=== PATIENT | male | born 1960 | race Hispanic/Latino ===

== ENCOUNTER 2017-10-15 23:51 | Emergency (ER) | payer BC ==
[~2017-10-15] VITALS: Ht 177.8 cm; Wt 89.8 kg
[2017-10-16 00:45] LABS: BASOPHILS % 0.9 % (0.0-1.0); EOSINOPHILS # (AUTO) 0.1 (0.0-0.4); EOSINOPHILS % 2.8 % (0.0-6.0); HEMOGLOBIN 14.2 g/dL (14.0-18.0); LYMPHOCYTES # (AUTO) 1.1 (1.0-3.2); LYMPHOCYTES % 24.9 % (18.0-39.1); MEAN CORPUSCULAR HEMOGLOBIN 31.1 pg (28-32); MEAN CORPUSCULAR HGB CONC 35.5 g/dL (31-35); MEAN CORPUSCULAR VOLUME 87.7 fL (81-99); MONOCYTES # (AUTO) 0.8 (0.2-0.8); MONOCYTES % 16.6 % (4.4-11.3); NEUTROPHILS # (AUTO) 2.5 (2.1-6.9); NEUTROPHILS % 54.6 % (38.7-80.0); PLATELET COUNT 249 x10e3/uL (140-360); RED BLOOD COUNT 4.56 x10e6/uL (4.3-5.7); RED CELL DISTRIBUTION WIDTH 12.3 % (11.7-14.4)
[2017-10-16 00:46] LABS: KETONES,URINE 3+ (NEGATIVE); LEUKOCYTE ESTERASE ,URINE 1+ (NEGATIVE); URINE UROBILINOGEN 12 mg/dL (0.2 - 1)
[2017-10-16 00:47] LABS: BILIRUBIN,URINE 2+ (NEGATIVE); COLOR,URINE AMBER (YELLOW); NITRITE,URINE POSITIVE (NEGATIVE); PROTEIN,URINE DIPSTICK TRACE (NEGATIVE)
[2017-10-16 00:48] LABS: CLARITY,URINE SL CLOUDY (CLEAR)
[2017-10-16 00:54] LABS: BACTERIA,URINE MODERATE /HPF; EPITHELIAL CELLS,URINE RARE /LPF; MUCUS,URINE MANY (RARE); RBC,URINE 0-5 /HPF (0-5)
[2017-10-16 01:04] LABS: AMYLASE 44 U/L (25-125); LIPASE 73 U/L (8-78)
[2017-10-16 01:08] LABS: ALANINE AMINOTRANSFERASE 140 IU/L (0-55); ALBUMIN 3.2 g/dL (3.5-5.0); ALKALINE PHOSPHATASE 56 IU/L (40-150); ANION GAP 16.6 mmol/L (8-16); BLOOD UREA NITROGEN 19 mg/dL (7-26); BUN/CREATININE RATIO 23 (6-25); CALCIUM 8.8 mg/dL (8.4-10.2); CARBON DIOXIDE 20 mmol/L (22-29); CHLORIDE 106 mmol/L (98-107); CREATININE, SERUM 0.82 mg/dL (0.72-1.25); EST GLOMERULAR FILTRATION RATE > 60 ML/MIN (60-); GLUCOSE 135 mg/dL (74-118); POTASSIUM 3.6 mmol/L (3.5-5.1); SODIUM 139 mmol/L (136-145)
[2017-10-16] MEDS ORDERED: PANTOPRAZOLE 40 MG 10ML VIAL IV STA (02:30)
[2017-10-16] MEDS ORDERED: PIPER-TAZ 3.375 GM 50 ML IV STA (02:30)
[2017-10-16] MEDS ORDERED: SODIUM CHLORIDE 0.9% 1000ML 1,000 ML IV STA (02:30)
[2017-10-16 02:42] LABS: INR 1.09; PROTHROMBIN TIME 13.3 seconds (11.9-14.5)
[2017-10-16 02:43] LABS: PARTIAL THROMBOPLASTIN TIME 26.1 seconds (23.8-35.5)
[2017-10-16 02:56] LABS: CREATINE KINASE MB 0.8 ng/mL (0-5.0)
--- NOTE | 2017-10-16 03:10 | Diagnostic Imaging Report ---
EXAM: CT ABDOMEN AND PELVIS with IV CONTRAST DATE: 10/16/2017 1:19 AM Time stamp on Exam: 0236 hours INDICATION: Mid abdominal pain COMPARISON: CT of the abdomen and pelvis November 24, 2010 TECHNIQUE: The abdomen and pelvis were scanned using a multidetector helical scanner. Coronal and sagittal reformations were obtained. Routine protocol performed. IV Contrast: 100 cc Isovue-370 Oral Contrast: Water CTDIvol has been reviewed. It is below the limits set by the Radiation Protocol Committee (RPC). FINDINGS: LOWER THORAX: No consolidations LIVER: No masses BILIARY: The gallbladder is unremarkable. No ductal dilation. SPLEEN: No masses PANCREAS: No masses ADRENALS: No nodules KIDNEYS: Symmetric perfusion. No enhancing masses. No hydronephrosis. GI TRACT: No distention, wall thickening or evidence of obstruction. Scattered colonic diverticula. Normal appendix. VESSELS: Unremarkable PERITONEUM/RETROPERITONEUM: No free air or fluid LYMPH NODES: Left inguinal and pelvic sidewall clips. Right inguinal mass measuring 3.5 x 4 cm. Fat stranding left inguinal region. Enlarged right common femoral lymph node measuring 1.2 cm in short diameter. REPRODUCTIVE ORGANS: Unremarkable BLADDER: Unremarkable SOFT TISSUES: Unremarkable BONES: No suspicious bone lesions. IMPRESSION: Right inguinal lymphadenopathy consistent with metastatic disease measuring up to [address] findings to explain patient's mid abdominal pain. Signed by: Dr. Brielle Burris M.D. on 10/16/2017 3:07 AM
--- NOTE | 2017-10-16 03:11 | Diagnostic Imaging Report ---
EXAM: CHEST SINGLE (PORTABLE), AP 1 view INDICATION: Mid abdominal pain COMPARISON: None FINDINGS: LINES/TUBES: None LUNGS: No consolidations or edema. PLEURA: No effusions or pneumothorax. HEART AND MEDIASTINUM: Normal size and contour. BONES AND SOFT TISSUES: No acute findings. Metallic fragment projects over the right axilla. IMPRESSION: No acute thoracic abnormality. Signed by: Dr. Brielle Burris M.D. on 10/16/2017 3:07 AM
[2017-10-16] MEDS ORDERED: SODIUM CHLORIDE 0.9% 50ML 50 ML ONE (03:48)
[2017-10-16] MEDS ORDERED: IOPAMIDOL 370 MG/ML 200 ML INFUS..BTL INJ ONE (03:49)
== END 2017-10-16 04:34 | disposition home or self-care (01) ==
LOC: ER 23:51
DX: R10.11 Right upper quadrant pain (principal); R10.13 Epigastric pain; N30.90 Cystitis, unspecified without hematuria; B17.9 Acute viral hepatitis, unspecified
CPT/HCPCS: 36415; 71045; 74177; 80053; 81001; 82150; 82550; 82553; 83690; 84484; 85025; 85610; 85730; 96360; 96365; 96374; 99284; J2543; J7030; Q9967

== ENCOUNTER 2019-01-17 08:33 | Emergency (ER) | payer BC ==
[~2019-01-17] VITALS: Ht 177.8 cm; Wt 85.7 kg
--- OUTSIDE RECORDS SUMMARY | 2019-01-17 08:36 | XMS REPORT ---
[facility] Address Unknown Phone Unavailable Care Team Providers Care [employer] Name Role Phone Misti YOUNGBLOOD Unavailable Unavailable Problems This patient has no known problems. Allergies, Adverse Reactions, Alerts This patient has no known allergies or adverse reactions. Medications This patient has no known medications. Results Test Description Test Time Test Comments Text Results Atomic Results Result Comments CHEST SINGLE (PORTABLE) [place] [address] Patient Name: BRANDI ARANA MR #: [id number] : 1960 Age/Sex: 57/M Req #: [id number] Adm Physician: Ordered by: LILIAN YOUNGBLOOD MD Report #: [id number] Location: ER Room/Bed: Procedure: [id number] DX/CHEST SINGLE (PORTABLE) Exam Date: Exam Time: REPORT STATUS: Signed EXAM: CHEST SINGLE (PORTABLE), AP 1 view INDICATION: Mid abdominal pain COMPARISON: None FINDINGS: LINES/TUBES: None LUNGS: No consolidations or edema. PLEURA: No effusions or pneumothorax. HEART AND MEDIASTINUM: Normal size and contour. BONES AND SOFT TISSUES: No acute findings. Metallic fragment projects over the right axilla. IMPRESSION: No acute thoracic abnormality. Signed by: Dr. Fabiana Davidson M.D. on 10/16/2017 3:07 AM Dictated By: FABIANA DAVIDSON MD 6 Transcribed By: ANUPAMA on 10/16/17306 COPY TO: LILIAN YOUNGBLOOD MD CT ABDOMEN/PELVIS W [place] [address] Patient Name: BRANDI ARANA MR #: [id number] : 1960 Age/Sex: 57/M Req #: [id number] Adm Physician: Ordered by: LILIAN YOUNGBLOOD MD Report #: [id number] Location: ER Room/Bed: Procedure: [id number] CT/CT ABDOMEN/PELVIS W Exam Date: Exam Time: REPORT STATUS: Signed EXAM: CT ABDOMEN AND PELVIS with IV CONTRAST DATE: 10/16/2017 1:19 AM Time stamp on Exam: 0236 hours INDICATION: Mid abdominal pain COMPARISON: CT of the abdomen and pelvis November 24, 2010 TECHNIQUE: The abdomen and pelvis were scanned using a multidetector helical scanner. Coronal and sagittal reformations were obtained. Routine protocol performed. IV Contrast: 100 cc Isovue-370 Oral Contrast: Water CTDIvol has been reviewed. It is below the limits set by the Radiation Protocol Committee (RPC). FINDINGS: LOWER THORAX: No consolidations LIVER: No masses BILIARY: The gallbladder is unremarkable. No ductal dilation. SPLEEN: No masses PANCREAS: No masses ADRENALS: No nodules KIDNEYS: Symmetric perfusion. No enhancing masses. No hydronephrosis. GI TRACT: No distention, wall thickening or evidence of obstruction. Scattered colonic diverticula. Normal appendix. VESSELS: Unremarkable PERITONEUM/RETROPERITONEUM: No free air or fluid LYMPH NODES: Left inguinal and pelvic sidewall clips. Right inguinal mass measuring 3.5 x 4 cm. Fat stranding left inguinal region. Enlarged right common femoral lymph node measuring 1.2 cm in short diameter. REPRODUCTIVE ORGANS: Unremarkable BLADDER: Unremarkable SOFT TISSUES: Unremarkable BONES: No suspicious bone lesions. IMPRESSION: Right inguinal lymphadenopathy consistent with metastatic disease measuring up to [address] findings to explain patient's mid abdominal pain. Signed by: Dr. Fabiana Davidson M.D. on 10/16/2017 3:07 AM Dictated By: FABIANA DAVIDSON MD 6 Transcribed By: ANUPAMA on 10/16/17306 COPY TO: LILIAN YOUNGBLOOD MD
[2019-01-17] MEDS ORDERED: SODIUM CHLORIDE 0.9% 1000ML 1,000 ML IV STA (08:45)
--- NOTE | 2019-01-17 09:18 | Diagnostic Imaging Report ---
Examination: Single AP view of the chest. 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 No focal airspace consolidation, pleural effusion, or pneumothorax. Cardiomediastinal contour and pulmonary vasculature are within normal limits for portable, AP technique and degree of inspiratory effort. No acute osseous abnormality. IMPRESSION: Low lung volumes without acute cardiopulmonary abnormality. Signed by: Dr. Rene Birmingham M.D. on 01/17/2019 9:15 AM
[2019-01-17] MEDS ORDERED: FOSPHENYTOIN 50 MG/ML VIAL IV STA (09:28)
--- NOTE | 2019-01-17 09:29 | NUR ---
DR YOUNGBLOOD AT BEDSIDE FOR RE-EVAL AND DISCUSSING THE CURRENT PLAN OF CARE, PATIENT TO BE TRANSFERRED FOR HIGHER LEVEL OF CARE. PATIENT AND FAMILY VERBALIZED UNDERSTANDING.
[2019-01-17] MEDS ORDERED: DEXAMETHASONE SOD PHOS 10 MG/1 ML VIAL IV ONE (09:30)
--- NOTE | 2019-01-17 09:42 | Diagnostic Imaging Report ---
Examination: CT BRAIN WITHOUT CONTRAST History:Tremors from today. Bilateral lower extremity fasciculations. History of brain surgery on the right. Future gamma knife on the left tumor. Comparison studies:None Technique: Axial images were obtained from the skull base to the vertex. Coronal and sagittal images reconstructed from the axial data. Dose modulation, iterative reconstruction, and/or weight based adjustment of the mA/kV was utilized to reduce the radiation dose to as low as reasonably achievable. Intravenous contrast: None Findings: Scalp: No abnormalities. Bones: Prior right parietal craniectomy with underlying encephalomalacia of the right superior parietal lobule. No fractures, blastic or lytic lesions. Brain sulci: Appropriate for age. Ventricles: Normal in size and configuration. No hydrocephalus. Extra-axial space: No abnormalities. Parenchyma: There is an ill-defined hyperdense lesion (melanoma metastasis) with associated 3.4 x 2.8 x 2.3 cm (superoinferior x anteroposterior x transverse dimensions) hemorrhage in the left superior parietal lobule. The combination of the mass and hemorrhage results in regional vasogenic edema and mild mass effect on the atrium of the left lateral ventricle. No midline shift or herniation. No acute or chronic cortical based vascular insults. Sellar/suprasellar region: No abnormalities. Craniocervical junction: Patent foramen magnum. No Chiari one malformation. Incidental findings: None. Impression: 1. Ill-defined hyperdense melanoma metastasis with associated 3.4 x 2.8 x 2.3 cm hemorrhage in the left superior parietal lobule. The combination of both findings result in regional mass effect and mild mass effect on the left lateral ventricle. No midline shift or herniation. 2. Prior right parietal craniectomy with underlying encephalomalacia of the right superior parietal lobule. Dr. Cony Martinez discussed acute findings and recommendations with Dr. Morgan on 01/17/2019 at 0924 hours. Signed by: Dr. Cony Martinez M.D. on 01/17/2019 9:39 AM
--- NOTE | 2019-01-17 09:43 | NUR ---
INITIATED TRANSFER TO [facility], SPOKE WITH SANNA.
[2019-01-17] MEDS ORDERED: MIDAZOLAM HCL 2 MG/2 ML VIAL IV STA (09:52)
[2019-01-17] MEDS ORDERED: DEXAMETHASONE SOD PHOS 10 MG/1 ML VIAL IV NR (10:00)
[2019-01-17] MEDS ORDERED: LORAZEPAM INJ 2 MG/ML VIAL IV NR (10:00)
[2019-01-17 10:01] LABS: BASOPHILS # (AUTO) 0.1 (0.0-0.1); BASOPHILS % 1.4 % (0.0-1.0); EOSINOPHILS # (AUTO) 0.1 (0.0-0.4); EOSINOPHILS % 0.9 % (0.0-6.0); HEMATOCRIT 38.4 % (38.2-49.6); HEMOGLOBIN 12.8 g/dL (14.0-18.0); LYMPHOCYTES # (AUTO) 1.6 (1.0-3.2); LYMPHOCYTES % 27.9 % (18.0-39.1); MEAN CORPUSCULAR HEMOGLOBIN 31.4 pg (28-32); MEAN CORPUSCULAR HGB CONC 33.3 g/dL (31-35); MEAN CORPUSCULAR VOLUME 94.3 fL (81-99); MONOCYTES # (AUTO) 0.7 (0.2-0.8); MONOCYTES % 12.3 % (4.4-11.3); NEUTROPHILS # (AUTO) 3.3 (2.1-6.9); NEUTROPHILS % 56.5 % (38.7-80.0); PLATELET COUNT 309 x10e3/uL (140-360); RED BLOOD COUNT 4.07 x10e6/uL (4.3-5.7); RED CELL DISTRIBUTION WIDTH 13.1 % (11.7-14.4)
[2019-01-17 10:04] LABS: BILIRUBIN,URINE NEGATIVE (NEGATIVE); CLARITY,URINE SL CLOUDY (CLEAR); COLOR,URINE YELLOW (YELLOW); KETONES,URINE NEGATIVE (NEGATIVE); LEUKOCYTE ESTERASE ,URINE NEGATIVE (NEGATIVE); NITRITE,URINE NEGATIVE (NEGATIVE); PROTEIN,URINE DIPSTICK NEGATIVE (NEGATIVE); URINE UROBILINOGEN 0.2 mg/dL (0.2 - 1)
--- NOTE | 2019-01-17 10:06 | NUR ---
PT STOPPED SHAKING POST ADMIN OF VERSED; PT STATES HE'S ABLE TO RELAX MORE NOW
[2019-01-17 10:08] LABS: INR 0.87; PROTHROMBIN TIME 12.3 seconds (11.9-14.5)
[2019-01-17 10:09] LABS: PARTIAL THROMBOPLASTIN TIME 27.5 seconds (23.8-35.5)
[2019-01-17 10:13] LABS: EPITHELIAL CELLS,URINE RARE /LPF
[2019-01-17] MEDS ORDERED: DIAZEPAM 5 MG TAB PO ONE (10:15)
[2019-01-17] MEDS ORDERED: FOSPHENYTOIN 1,000 MG in SODIUM CHLORIDE 0.9% 50ML 50 ML IV ONE (10:15)
[2019-01-17 10:16] LABS: ALANINE AMINOTRANSFERASE 17 IU/L (0-55); ALBUMIN 3.8 g/dL (3.5-5.0); ALBUMIN/GLOBULIN RATIO 1.3 (0.8-2.0); ALKALINE PHOSPHATASE 74 IU/L (40-150); ANION GAP 11.1 mmol/L (8-16); BLOOD UREA NITROGEN 13 mg/dL (7-26); BUN/CREATININE RATIO 17 (6-25); CALCIUM 9.5 mg/dL (8.4-10.2); CARBON DIOXIDE 25 mmol/L (22-29); CHLORIDE 106 mmol/L (98-107); CREATININE, SERUM 0.77 mg/dL (0.72-1.25); EST GLOMERULAR FILTRATION RATE > 60 ML/MIN (60-); GLUCOSE 108 mg/dL (74-118); MAGNESIUM 2.1 MG/DL (1.3-2.1); POTASSIUM 4.1 mmol/L (3.5-5.1); SODIUM 138 mmol/L (136-145)
--- NOTE | 2019-01-17 10:18 | NUR ---
INITIATED TRANSFER TO [facility] [place], SPOKE WITH
[2019-01-17 10:36] LABS: THYROID STIMULATING HORMONE 1.427 uIU/mL (0.350-4.940)
--- NOTE | 2019-01-17 11:00 | NUR ---
[facility] ACCEPTED THE TRANSFER, SPOKE WITH LEANDER, STATES THEY ARE WAITING ON A BED AT THIS TIME AND WILL NOTIFY WHEN BED IS AVIALABLE.
--- NOTE | 2019-01-17 11:05 | NUR ---
SPOKE WITH JORDAN VELAZQUEZ [facility], STATES IN APPROX 15 MIN NEURO ICU BED WILL BE AVIALABLE. NOTIFIED DR YOUNGBLOOD.
--- NOTE | 2019-01-17 11:20 | NUR ---
[facility] ER TO ER ACCEPTING DOCTOR: DR KIAN RIVERA @ 1120 ADMIN APPROVAL: DR ADEBAYO HURLEY @ 1125
--- NOTE | 2019-01-17 11:31 | NUR ---
NOTIFIED [facility] FOR TRANSFER TO [facility],SPOKE WITH JOMAR SMITH APPROX 15MIN.
--- NOTE | 2019-01-17 11:38 | NUR ---
ANA STEPHENS TO [facility], SPOKE WITH SHANELL.
--- NOTE | 2019-01-17 12:02 | NUR ---
REPORT GIVEN TO EMS AND BRYAN AT [facility] ER
[2019-01-17 12:04] VITALS: BP 125/79
[2019-01-17 12:19] LABS: CREATINE KINASE 56 IU/L (30-200)
== END 2019-01-17 12:25 | disposition other institution (70) ==
LOC: ER 08:33
DX: G40.109 Localization-related (focal) (partial) symptomatic epilepsy and epileptic syndromes with simple partial seizures, not intractable, without status epilepticus (principal); C79.31 Secondary malignant neoplasm of brain; C43.9 Malignant melanoma of skin, unspecified; R53.1 Weakness
CPT/HCPCS: 36415; 70450; 71045; 80053; 81001; 82550; 82553; 83605; 83735; 84443; 84484; 85025; 85610; 85730; 87040; 87086; 93005; 99284; J1100; J2250; J7030; Q2009